=== PATIENT | female | born 1950 | race Caucasian/White ===

== ENCOUNTER 2019-03-17 09:09 | Outpatient (CLI) | payer MEDICARE, OTHER ==
--- NOTE | 2019-03-17 10:22 | MMO ---
Bilateral MAMMO Bilat Screen [facility]. CLINICAL HISTORY: Patient is 68 years old and is seen for screening. The patient has the following family history of breast cancer: mother, at age 68. The patient has no personal history of cancer. VIEWS: The views performed were: bilateral craniocaudal with tomosynthesis and bilateral mediolateral oblique with tomosynthesis. FILMS COMPARED: The present examination has been compared to prior imaging studies performed at [facility] on 09/08/2006 and 09/26/2014. MAMMOGRAM FINDINGS: There are scattered fibroglandular densities. Finding 1: There are stable benign appearing calcifications seen in both breasts. Finding 2: There are several stable focal asymmetries seen in the right breast. Finding 3: There is a focal asymmetry measuring 9 millimeters seen in the MLO view only seen in the central region of the left breast. IMPRESSION: FINDING 1: STABLE CALCIFICATIONS IN BOTH BREASTS ARE BENIGN. FINDING 2: STABLE FOCAL ASYMMETRIES IN THE RIGHT BREAST ARE BENIGN. FINDING 3: FOCAL ASYMMETRY IN THE LEFT BREAST REQUIRES ADDITIONAL EVALUATION. ADDITIONAL PROJECTIONS (LEFT CRANIOCAUDAL SPOT COMPRESSION; LEFT MEDIOLATERAL OBLIQUE SPOT COMPRESSION; AND LEFT MEDIOLATERAL) ARE RECOMMENDED. AN ULTRASOUND EXAM IS RECOMMENDED IF NEEDED. ADDITIONAL IMAGING. THE RESULTS OF THIS EXAM WERE SENT TO THE PATIENT. ACR BI-RADS Category 0 - Incomplete: Need additional imaging evaluation. [facility] will notify the patient of the need for additional imaging services. MAMMOGRAPHY NOTE: 1. A negative mammogram report should not delay a biopsy if a dominant of clinically suspicious mass is present. 2. Approximately 10% to 15% of breast cancers are not detected by mammography. 3. Adenosis and dense breasts may obscure an underlying neoplasm.
== END 2019-03-17 09:10 | disposition home or self-care (01) ==
LOC: BICMAMMO 09:09
PROVIDERS: ATTEND Nurse Practitioner Family
DX: Z12.31 Encounter for screening mammogram for malignant neoplasm of breast (principal); R92.1 Mammographic calcification found on diagnostic imaging of breast; N64.89 Other specified disorders of breast; Z80.3 Family history of malignant neoplasm of breast
CPT/HCPCS: 77063; 77067

== ENCOUNTER 2019-03-24 12:37 | Outpatient (CLI) | payer MEDICARE, OTHER ==
--- NOTE | 2019-03-24 13:06 | MMO ---
Left Breast MAMMO Unilat Diag [facility]. CLINICAL HISTORY: Patient is 68 years old and is seen for follow-up at short-interval from prior study. The patient has the following family history of breast cancer: mother, at age 68. The patient has no personal history of cancer. VIEWS: The views performed were: left mediolateral oblique spot compression with tomosynthesis and left mediolateral with tomosynthesis. FILMS COMPARED: The present examination has been compared to prior imaging studies performed at [facility] on 09/08/2006, 09/26/2014 and 03/17/2019. MAMMOGRAM FINDINGS: There are scattered fibroglandular densities. There is an asymmetry seen in the upper-outer region of the left breast. Tomosynthesis compression images show the abnormality to represent superimpostion of normal breast parenchyma. There are no suspicious masses, suspicious calcifications, or new areas of architectural distortion. IMPRESSION: THERE IS NO MAMMOGRAPHIC EVIDENCE OF MALIGNANCY. A ROUTINE FOLLOW-UP MAMMOGRAM IN 1 YEAR IS RECOMMENDED. THE RESULTS OF THIS EXAM WERE SENT TO THE PATIENT. ACR BI-RADS Category 2 - Benign finding MAMMOGRAPHY NOTE: 1. A negative mammogram report should not delay a biopsy if a dominant of clinically suspicious mass is present. 2. Approximately 10% to 15% of breast cancers are not detected by mammography. 3. Adenosis and dense breasts may obscure an underlying neoplasm.
== END 2019-03-24 12:38 | disposition home or self-care (01) ==
LOC: BICMAMMO 12:37
PROVIDERS: ATTEND Nurse Practitioner Family
DX: R92.2 Inconclusive mammogram (principal); Z80.3 Family history of malignant neoplasm of breast
CPT/HCPCS: 77065; G0279

== ENCOUNTER 2021-12-13 14:39 | Outpatient (CLI) | payer MEDICARE, OTHER | END 2021-12-13 14:40 | disposition home or self-care (01) | LOC: BICMAMMO 14:39 | PROVIDERS: ATTEND Nurse Practitioner Family | DX: Z12.31 Encounter for screening mammogram for malignant neoplasm of breast (principal); M81.0 Age-related osteoporosis without current pathological fracture; M25.532 Pain in left wrist; Z80.3 Family history of malignant neoplasm of breast | CPT/HCPCS: 77063; 77067; 77080 ==

== ENCOUNTER 2022-12-31 10:39 | Outpatient (CLI) | payer MEDICARE, OTHER | END 2022-12-31 10:40 | disposition home or self-care (01) | LOC: BICMAMMO 10:39 | PROVIDERS: ATTEND Internal Medicine | DX: Z12.31 Encounter for screening mammogram for malignant neoplasm of breast (principal); Z91.89 Other specified personal risk factors, not elsewhere classified; Z80.3 Family history of malignant neoplasm of breast | CPT/HCPCS: 77063; 77067 ==

== ENCOUNTER 2023-12-31 10:07 | Day surgery (SDC) | payer MEDICARE, OTHER ==
[2023-12-31] MEDS: Zoledronic Acid/Mannitol&Water 5 MG in Premix 1 BAG IVPB SCH (10:53)
[2023-12-31 11:01] VITALS: BP 156/71; TEMP 98
== END 2023-12-31 12:13 | disposition home or self-care (01) ==
LOC: ONC/OP 10:07
PROVIDERS: ATTEND Internal Medicine
DX: M81.0 Age-related osteoporosis without current pathological fracture (principal); Z88.7 Allergy status to serum and vaccine
CPT/HCPCS: 96365; J3489